=== PATIENT | female | born 1980 | race Caucasian/White ===

== ENCOUNTER 2024-03-27 20:32 | Emergency (ER) | payer SELFPAY ==
[2024-03-27 20:32] VITALS: BMI 24.3
[2024-03-27 20:35] VITALS: BP 147/105
[2024-03-27 21:38] VITALS: BP 133/100
[2024-03-27 22:00] VITALS: BP 120/82
[2024-03-27 23:08] VITALS: BP 130/84
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
[2024-03-28] VITALS: BP 114/101
[2024-03-28] MEDS: OXYCONTIN (CONTROLLED RELEASE) 15 MG PO (00:29)
[2024-03-28] MEDS: ANCEF 1000 MG IM (00:30)
[2024-03-28 02:00] VITALS: BP 129/88
[2024-03-28] MEDS: ROXICODONE 5 MG PO (07:31)
[2024-03-28 08:34] VITALS: BP 117/89
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
[2024-03-28] MEDS: NEURONTIN 600 MG PO (10:52)
[2024-03-28] MEDS: TYLENOL 1000 MG PO (10:53)
[2024-03-28 12:00] VITALS: BP 121/79
== END 2024-03-28 13:00 | disposition home or self-care (01) ==
LOC: EMR 20:32
PROVIDERS: EMERGENCY PHYSICIAN Emergency Medicine; FAMILY PHYSICIAN Family Medicine
DX: Z76.0 Encounter for issue of repeat prescription (principal); M79.7 Fibromyalgia; M54.9 Dorsalgia, unspecified; M54.2 Cervicalgia
CPT/HCPCS: 99282; 96372

== ENCOUNTER 2024-07-28 09:06 | Emergency (ER) | payer SELFPAY ==
[2024-07-28 09:08] VITALS: BP 143/96
[2024-07-28 09:12] VITALS: BMI 23.8
--- NOTE | 2024-07-28 09:13 | ED.GENMED ---
History of Present Illness
General
Chief Complaint: Cold/Flu/URI Symptoms
Source: patient
Exam Limitations: none
Time Seen by Provider: 07/28/24 09:09
Nursing documentation reviewed up to this point in time: agreed with
History of Present Illness
History of Present Illness:
43 y/o F with h/o lumbar epidural abscess, MSSA pos cultures 2023 requiring IV abx
multiple admissions [facility] [place]
[facility]ness from [facility]
states former IVDA
last abx given in april 2024
cervical disc disease
smoker
here for URI sxs, sinus congestion, cough, dental pain and cracked tooth
says she has been sick for a few days
she was supposed to be on [facility] duracef she says but has had troubel with [place] and [employer] insurance
she denies any fever, new neck/back pain, cp, syncope
her boyfriend is here with covid infection and she feels the same and checked herself in
she has had chronic neurpoapthy and uses gabapentin but ran out and is asking for refill
she also is asking for us to fill her medication because case management filled her boyfriend's
Past History
Past History
ED Past Medical History: Other
ED Past Surgical History: Gynecological ( ) and Other
Social History
Living: with family
Employment: Employed
Phy Exam
Physical Exam
Physical Exam:
GENERAL: Alert , in no apparent distress
EYE: pupils equal and reactive
NECK: Supple
ENT: b/l TM s clear, pharynx erythematous but no tonsillar hypertrophy or exudates
partial fracture R lower 1st molar, no periapical swelling
L upper pre molar partial fracture; no peripical swelling
no tirsmus
+sinus congestion
CARDIAC: Regular rate and rhythm, no edema
LUNGS: Clear breath sounds bilaterally, no acute respiratory distress, no wheezes/rales/rhonchi, occ cough
ABDOMEN: Soft, without focal tenderness, no r/g, no cvat, normal bowel sounds
NEUROLOGICAL: Alert and oriented, no focal neuro deficits
SKIN: Warm and dry, skin intact.
MUSCULOSKELETAL: No edema, well perfused.
PSYCH: Normal and appropriate interaction.
Course
Orders/Labs/Results
Orders:
Orders
07/28/24 00:00
Amoxicillin 875 mg/Clav 125 mg [Augmentin 875 mg/125 mg] 1 tablet PO BID
Gabapentin [Neurontin] 600 mg PO BID
07/28/24 09:15
COVID-19 Antigen Urgent
Source: Nasal Swab
Influenza A+B Rapid Molecular Urgent
CHHAYA Source: Nasal Swab
Specimen Description:
07/28/24 10:50
Amoxicillin 875 mg/Clav 125 mg [Augmentin 875 mg/125 mg] 1 tablet PO NOW STA
07/28/24 11:09
Case Management Consult ONCE
Case Management Consult: Other
Vital Signs
Initial and Last Documented VS:
Initial Vital Signs
Pulse Resp Pulse Ox
79 16 99
07/28/24 09:07 07/28/24 09:07 07/28/24 09:07
Last Documented Vital Signs
Temp Pulse Resp BP Pulse Ox
37.1 C 74 18 123/63 99
07/28/24 09:08 07/28/24 10:08 07/28/24 10:08 07/28/24 10:08 07/28/24 10:08
MDM/Problems Addressed
Differential Diagnosis Includes:
sinusuiti, covid, dental infection
MDM/Problems Addressed:
43 y/o F
unhoused
from [place] [facility]
h/o epidural abscess/iv drug abuse
cervical disc disease
smoker
here with uri sxs, sinus congestion and dentla pain x 3-4 days
isma has covid and came here; she came with him and after his test was positive, she checked in as well
she has had a mostly dry occasionally productive cough
no new neck pain/back pain
on exam afebrile
congested
some poor dentition without obvious abscess
lugns clear occ coughand no murmur
covid and flu neg
i see pt has had duracef in the past
her bacteremia was MSSA
she last had eval sometime in april and says her culture were ng
but she wa spoorly compliant during the episode
will cover with augmentin
casemaangement consulted
pt rquets gabapentin
refill
*Critical Care Note
Total Time (30-74mins, 75-104mins- exclusive of procedures): Not Applicable
ED Attending Note
-
Portions of this chart may have been created with voice recognition software.� Occasional wrong word or��sound alike� substitutions may have occurred due to the inherent limitations of voice recognition software.
Discharge Plan
Departure
Patient Disposition: Home (Routine Discharge)
Date of Disposition: 07/28/24
Time of Disposition: 11:05
Patient with high blood pressure during this ER visit?: No
Discharge Problem:
Pain, dental, Acute infection of sinus, Medication refill
Instructions: Sinusitis in adults - ED discharge instructions
Prescriptions:
New
gabapentin 600 mg tablet
600 mg PO BID Qty: 10 0RF
amoxicillin-pot clavulanate 875-125 mg tablet
1 tab PO BID Qty: 14 0RF
No Action
tramadol-acetaminophen 1 EACH tablet
2 ea PO BID
dextroamphetamine-amphetamine [Adderall] 10 MG tablet
10 mg PO TID
thiamine HCl (vitamin B1) 100 MG tablet
100 mg PO DAILY Qty: 30 0RF
metoprolol tartrate 25 MG tablet
25 mg PO DAILY Qty: 30 0RF
amoxicillin-pot clavulanate 1 TABLET tablet
1 tab PO Q12 3 Days Qty: 6 0RF
nicotine (polacrilex) 4 MG gum
4 mg BC DAILY Qty: 30 0RF
albuterol sulfate 18 GM HFA aerosol inhaler
6.7 gm IH DAILY PRN (Reason: shortness of breath) Qty: 1 0RF
cefadroxil 1 gram tablet
1,000 mg PO BID 30 Days Qty: 60 0RF
oxycodone 10 mg tablet
10 mg PO Q6H PRN (Reason: Pain) Qty: 15 0RF
gabapentin 600 mg tablet
600 mg PO TID 14 Days Qty: 42 0RF
acetaminophen 500 mg tablet
1,000 mg PO Q6H PRN (Reason: Pain) Qty: 30 0RF
Activity Restrictions/Additional Instructions:
Take the Augmentin twice a day for 7 days.
We refilled a short course of gabapentin as well but you will need to have this refilled by a clinic or family doctor.
Return for any concerns
He tested negative for flu and COVID
Interventions
Interventions:
*Risk Screen - Suicide Last Done: 07/28/24 09:19
*Neglect/Abuse Screening Last Done: 07/28/24 09:17
*ED COVID-19 Vaccine History Last Done: 07/28/24 09:13
*Nursing Disposition Last Done: 07/28/24 11:23
ED- Pulmonary Assessment Last Done: 07/28/24 09:14
Discharge Date and Time
Print Language: BERMUDIAN
[2024-07-28 10:08] VITALS: BP 123/63
[2024-07-28 10:14] LABS: COVID-19 Antigen Negative (Negative)
[2024-07-28] MEDS: AUGMENTIN 875 MG/125 MG 1 TABLET PO (10:54)
--- NOTE | 2024-07-28 11:00 | CM ---
Addendum entered by Patricia Soriano RN 07/28/24 11:01:
Patient is unable to transport herself to a pharmacy.
Original Note:
CM reviewed medical records . Patient is requesting assistance with medications. CM will assist with medication via V[employer] fund.
== END 2024-07-28 11:23 | disposition home or self-care (01) ==
LOC: EMR 09:06
PROVIDERS: Physician Assistant; EMERGENCY PHYSICIAN Emergency Medicine; FAMILY PHYSICIAN Family Medicine
DX: J01.90 Acute sinusitis, unspecified (principal); K08.89 Other specified disorders of teeth and supporting structures; Z76.0 Encounter for issue of repeat prescription; Z11.52 Encounter for screening for COVID-19; F17.200 Nicotine dependence, unspecified, uncomplicated; Z59.01 Sheltered homelessness
CPT/HCPCS: 99283; 87502; 87811